=== PATIENT | female | born 2000 | race Hispanic/Latino ===

== ENCOUNTER 2021-07-21 13:54 | Observation (INO) | payer OTHER ==
[2021-07-21] MEDS ORDERED: hydrALAZINE 20 MG/ML VIAL SLOW IVP PRN (14:20)
[2021-07-21] MEDS ORDERED: Promethazine HCl 25 MG/ML VIAL IM PRN (14:20)
[2021-07-21] MEDS ORDERED: Ondansetron PF 4 MG/2 ML Vial IVP PRN (14:20)
[2021-07-21] MEDS ORDERED: Calcium Gluc 4.6 MEQ/10 ML (100 MG/ML) SLOW IVP PRN (14:20)
[2021-07-21] MEDS ORDERED: hydrALAZINE 20 MG/ML VIAL ONE (14:21)
[2021-07-21] MEDS ORDERED: Magnesium Sulfate 20 gm/500 ml 20 GM/500 ML BAG IVPB SCH (14:45)
[2021-07-21] MEDS: Betamet Acet/Betamet Na Ph 30 MG/5 ML VIAL IM SCH (15:20)
[2021-07-21] MEDS ORDERED: Acetaminophen 500 MG TAB PO PRN (15:58)
[2021-07-21] MEDS ORDERED: Acetaminophen 500 MG TAB PO SCH (16:30)
[2021-07-21 16:56] LABS: Syphilis Antibody Nonreactive (Nonreactive); Syphilis Antibody Index 0.04 S/CO (<1.00 Non-Reactive)
[2021-07-21 17:12] LABS: Hep B Surf Ag Non-Reactive S/CO (NonReactive)
[2021-07-21 17:14] LABS: HBSAg Index 0.22 S/CO (0-0.99)
[2021-07-21 20:44] VITALS: BMI 22.8
[2021-07-22 05:16] LABS: #Monocytes 0.5 10x3/uL (0.0-1.1); #Neutrophils 10.5 10x3/uL (1.5-8.4); %Basophils 0.2 % (0.0-2.0); %Lymphocytes 8.6 % (18.0-47.0); %Monocytes 3.8 % (0.0-10.0); %Neutrophils 85.8 % (40.0-75.0); Hemoglobin 11.8 g/dL (12.0-15.5); Mean Corpuscular HGB CONC 34.7 g/dL (32.0-36.0); Mean Corpuscular Hemoglobin 28.6 pg (27.0-33.0); Mean Corpuscular Volume 82.3 fl (81.6-98.3); Platelet Count 286 10x3/uL (150-450); Red Blood Cell (RBC) Count 4.13 10x6/uL (3.90-5.03); White Blood Cell (WBC) Count 12.2 10x3/uL (3.5-10.5)
[2021-07-22 06:06] LABS: ALT (SGPT) 20 U/L (8-55); AST (SGOT) 20 U/L (5-30); Albumin 3.2 g/dL (3.5-5.0); Alkaline Phosphatase 126 U/L (40-100); Anion Gap 14 mmol/L (10-20); BUN (Urea Nitrogen) 8 mg/dL (8.4-21.0); Bilirubin, Total 0.2 mg/dL (0.2-1.2); Calc. Creatinine Clearance 133 mL/min (70-130); Calcium 8.6 mg/dL (7.8-10.44); Carbon Dioxide 16 mmol/L (22-29); Chloride 108 mmol/L (98-107); Globulin 3.1 g/dL (2.4-3.5); Glucose 115 mg/dL (70-105); Potassium 4.1 mmol/L (3.5-5.1); Protein, Total 6.3 g/dL (6.0-8.3); Sodium 134 mmol/L (136-145)
[2021-07-22] MEDS ORDERED: Prenatal Vitamin 1 TAB PO SCH (09:00)
[2021-07-22] MEDS: Betamet Acet/Betamet Na Ph 30 MG/5 ML VIAL IM SCH (15:22)
[2021-07-22 16:31] VITALS: BP 126/74; TEMP 98
[2021-07-22 16:35] LABS: Protein, Urine Less than 10 mg/dL (1-14)
[2021-07-22 16:46] LABS: Urine Total Volume 1990 mL (600-1600)
== END 2021-07-22 18:55 | disposition home or self-care (01) ==
LOC: CSHLD 13:54 → INTOOBSV 13:54 → CSHLD 14:19 → CSHANTE 22:01
PROVIDERS: ADMIT Student in an Organized Health Care Education/Training Program; ATTEND Student in an Organized Health Care Education/Training Program
DX: O13.2 Gestational [pregnancy-induced] hypertension without significant proteinuria, second trimester (principal); O36.5920 Maternal care for other known or suspected poor fetal growth, second trimester, not applicable or unspecified; O99.512 Diseases of the respiratory system complicating pregnancy, second trimester; J11.1 Influenza due to unidentified influenza virus with other respiratory manifestations; Z3A.27 27 weeks gestation of pregnancy; Z79.82 Long term (current) use of aspirin
CPT/HCPCS: 36415; 76816; 80053; 84156; 85025; 86780; 86850; 86900; 86901; 87340; 96372; 99285; G0378; J0702

== ENCOUNTER 2021-08-03 10:06 | Day surgery (SDC) | payer OTHER ==
[2021-08-03 10:56] VITALS: BMI 24.1
[2021-08-03] MEDS ORDERED: hydrALAZINE 20 MG/ML VIAL SLOW IVP PRN (11:27)
[2021-08-03 12:03] LABS: Anion Gap 13 mmol/L (10-20); BUN (Urea Nitrogen) 7 mg/dL (8.4-21.0); Calc. Creatinine Clearance 141 mL/min (70-130); Calcium 8.5 mg/dL (7.8-10.44); Carbon Dioxide 20 mmol/L (22-29); Chloride 107 mmol/L (98-107); Glucose 76 mg/dL (70-105); Potassium 3.7 mmol/L (3.5-5.1); Sodium 136 mmol/L (136-145)
== END 2021-08-03 14:00 | disposition home or self-care (01) ==
LOC: CSHLD/OP 10:06
PROVIDERS: ATTEND Student in an Organized Health Care Education/Training Program
DX: O99.891 Other specified diseases and conditions complicating pregnancy (principal); R19.7 Diarrhea, unspecified; O47.03 False labor before 37 completed weeks of gestation, third trimester; O99.283 Endocrine, nutritional and metabolic diseases complicating pregnancy, third trimester; E86.0 Dehydration; O13.3 Gestational [pregnancy-induced] hypertension without significant proteinuria, third trimester; Z3A.28 28 weeks gestation of pregnancy; Z79.82 Long term (current) use of aspirin
CPT/HCPCS: 36415; 80048; 99282

== ENCOUNTER 2021-08-17 18:53 | Inpatient (IN) | payer OTHER ==
[2021-08-17 19:23] VITALS: BMI 26.0
[2021-08-17] MEDS ORDERED: Acetaminophen 500 MG TAB PO SCH ×2 (20:00→21:45)
[2021-08-17 20:29] LABS: #Basophils 0.1 10x3/uL (0.0-0.2); #Eosinphils 0.4 10x3/uL (0.0-0.5); #Monocytes 0.9 10x3/uL (0.0-1.1); #Neutrophils 10.4 10x3/uL (1.5-8.4); %Basophils 0.5 % (0.0-2.0); %Eosinophils 2.4 % (0.0-6.0); %Lymphocytes 19.1 % (18.0-47.0); %Neutrophils 70.2 % (40.0-75.0); Mean Corpuscular HGB CONC 34.4 g/dL (32.0-36.0); Mean Corpuscular Hemoglobin 28.8 pg (27.0-33.0); Mean Corpuscular Volume 83.8 fl (81.6-98.3); Mean Platelet Volume 11.8 fl (7.4-10.4); Platelet Count 276 10x3/uL (150-450); RBC Distribution Width 12.3 % (11.5-14.5); Red Blood Cell (RBC) Count 3.82 10x6/uL (3.90-5.03); White Blood Cell (WBC) Count 14.9 10x3/uL (3.5-10.5)
[2021-08-17 20:35] LABS: Creatinine, Urine 186.13 mg/dL (47-110)
[2021-08-17 20:48] LABS: ALT (SGPT) 21 U/L (8-55); AST (SGOT) 24 U/L (5-34); Albumin 2.8 g/dL (3.5-5.0); Alkaline Phosphatase 169 U/L (40-100); Anion Gap 12 mmol/L (10-20); BUN (Urea Nitrogen) 15 mg/dL (7.0-18.7); Bilirubin, Total 0.1 mg/dL (0.2-1.2); Calc. Creatinine Clearance 123 mL/min (70-130); Calcium 8.5 mg/dL (7.8-10.44); Carbon Dioxide 21 mmol/L (22-29); Chloride 108 mmol/L (98-107); Globulin 3.2 g/dL (2.4-3.5); Glucose 79 mg/dL (70-105); Potassium 3.8 mmol/L (3.5-5.1); Sodium 137 mmol/L (136-145)
[2021-08-17] MEDS ORDERED: Labetalol HCl 100 MG TAB PO SCH (21:00)
[2021-08-17] MEDS ORDERED: hydrALAZINE 20 MG/ML VIAL SLOW IVP PRN (21:37)
[2021-08-17] MEDS ORDERED: Lidocaine 1% (PF) 30 ML VIAL SC PRN (21:37)
[2021-08-17] MEDS ORDERED: Ondansetron PF 4 MG/2 ML Vial IVP PRN (21:37)
[2021-08-17] MEDS ORDERED: Lactated Ringer's 500 ML IV SCH (21:45)
[2021-08-18 06:54] LABS: #Basophils 0.1 10x3/uL (0.0-0.2); #Eosinphils 0.5 10x3/uL (0.0-0.5); #Monocytes 0.8 10x3/uL (0.0-1.1); #Neutrophils 8.5 10x3/uL (1.5-8.4); %Basophils 0.5 % (0.0-2.0); %Eosinophils 3.5 % (0.0-6.0); %Lymphocytes 22.1 % (18.0-47.0); %Monocytes 6.2 % (0.0-10.0); %Neutrophils 66.1 % (40.0-75.0); Mean Corpuscular HGB CONC 34.9 g/dL (32.0-36.0); Mean Corpuscular Hemoglobin 29.2 pg (27.0-33.0); Mean Corpuscular Volume 83.6 fl (81.6-98.3); Mean Platelet Volume 11.7 fl (7.4-10.4); Platelet Count 258 10x3/uL (150-450); RBC Distribution Width 12.8 % (11.5-14.5); Red Blood Cell (RBC) Count 3.77 10x6/uL (3.90-5.03); White Blood Cell (WBC) Count 12.8 10x3/uL (3.5-10.5)
[2021-08-18 07:10] LABS: ALT (SGPT) 18 U/L (8-55); AST (SGOT) 21 U/L (5-34); Albumin 2.5 g/dL (3.5-5.0); Alkaline Phosphatase 146 U/L (40-100); Anion Gap 13 mmol/L (10-20); BUN (Urea Nitrogen) 13 mg/dL (7.0-18.7); Bilirubin, Total 0.1 mg/dL (0.2-1.2); Calc. Creatinine Clearance 141 mL/min (70-130); Calcium 7.9 mg/dL (7.8-10.44); Carbon Dioxide 19 mmol/L (22-29); Chloride 109 mmol/L (98-107); Globulin 2.9 g/dL (2.4-3.5); Glucose 79 mg/dL (70-105); Potassium 3.7 mmol/L (3.5-5.1); Protein, Total 5.4 g/dL (6.0-8.3); Sodium 137 mmol/L (136-145)
[2021-08-18 09:45] LABS: INR-International Normal Ratio 0.8; PTT 25.7 sec (22.0-33.0); Prothrombin Time 9.3 sec (9.5-12.1)
[2021-08-18] MEDS ORDERED: Acetaminophen 500 MG TAB PO PRN (11:15)
[2021-08-18] MEDS ORDERED: diphenhydrAMINE 25 MG CAP PO PRN (11:15)
[2021-08-18] MEDS ORDERED: Acetaminophen 500 MG TAB PO SCH (12:00)
[2021-08-18] MEDS ORDERED: diphenhydrAMINE 25 MG CAP PO SCH (12:00)
[2021-08-18 15:28] LABS: SARS-CoV-2 PCR by NAA Not Detected (NotDetected)
[2021-08-18] MEDS ORDERED: Cyclobenzaprine 10 MG TAB PO SCH (16:30)
[2021-08-18] MEDS: Betamet Acet/Betamet Na Ph 30 MG/5 ML VIAL IM SCH (16:36)
[2021-08-19 09:57] LABS: Protein, Urine 111 mg/dL (1-14)
[2021-08-19 10:13] LABS: Protein - 24 Hr 2803 mg/24 hr (Less than 300); Urine Total Volume 2525 mL (600-1600)
[2021-08-19] MEDS: Betamet Acet/Betamet Na Ph 30 MG/5 ML VIAL IM SCH (16:43)
[2021-08-20 05:19] LABS: INR-International Normal Ratio 0.8; PTT 22.8 sec (22.0-33.0); Prothrombin Time 9.3 sec (9.5-12.1)
[2021-08-20 05:23] LABS: ALT (SGPT) 21 U/L (8-55); AST (SGOT) 23 U/L (5-34); Albumin 2.6 g/dL (3.5-5.0); Alkaline Phosphatase 167 U/L (40-100); Anion Gap 13 mmol/L (10-20); BUN (Urea Nitrogen) 16 mg/dL (7.0-18.7); Bilirubin, Total 0.1 mg/dL (0.2-1.2); Calc. Creatinine Clearance 130 mL/min (70-130); Calcium 7.8 mg/dL (7.8-10.44); Carbon Dioxide 18 mmol/L (22-29); Chloride 109 mmol/L (98-107); Glucose 132 mg/dL (70-105); Protein, Total 5.6 g/dL (6.0-8.3); Sodium 136 mmol/L (136-145); Uric Acid 4.9 mg/dL (2.6-6.0)
[2021-08-20 05:49] LABS: Hemoglobin 10.6 g/dL (12.0-15.5); Mean Corpuscular HGB CONC 33.9 g/dL (32.0-36.0); Mean Corpuscular Hemoglobin 28.6 pg (27.0-33.0); Mean Corpuscular Volume 84.6 fl (81.6-98.3); Mean Platelet Volume 11.7 fl (7.4-10.4); Platelet Count 285 10x3/uL (150-450); RBC Distribution Width 12.5 % (11.5-14.5)
[2021-08-20 06:42] LABS: MDiff Complete? YES
[2021-08-20 06:43] LABS: Platelet Morphology Comment Appears Adequate; RBC Morphology Normal
[2021-08-20 06:45] LABS: Band 4 % (5-11); Lymphocytes 11 % (28-48); Monocytes 5 % (0-4); Neutrophil 80 % (31-61)
[2021-08-20 09:25] LABS: Creatinine, Urine 85.89 mg/dL (47-110)
[2021-08-20] MEDS ORDERED: hydrALAZINE 20 MG/ML VIAL SLOW IVP PRN (22:07)
[2021-08-20] MEDS ORDERED: hydrALAZINE 20 MG/ML VIAL ONE (22:15)
[2021-08-21 02:23] LABS: Fetal Membranes Rupture No Membranes Rupture (No Rupture)
[2021-08-21 04:04] LABS: HIV (1/2) Antibody/Antigen Non-Reactive (NonReactive); HIV 1/2 INDEX 0.08 S/CO (<1.00); Hep B Surf Ag Non-Reactive S/CO (NonReactive); Syphilis Antibody Nonreactive (Nonreactive); Syphilis Antibody Index 0.02 S/CO (<1.00 Non-Reactive)
[2021-08-21 04:18] LABS: HBSAg Index 0.21 S/CO (0-0.99)
[2021-08-21] MEDS ORDERED: ceFAZolin 2 GM/Dextrose 50 ML IVPB ONE (07:05)
[2021-08-21 07:19] LABS: Hemoglobin 11.7 g/dL (12.0-15.5); Mean Corpuscular HGB CONC 34.3 g/dL (32.0-36.0); Mean Corpuscular Hemoglobin 28.7 pg (27.0-33.0); Mean Corpuscular Volume 83.6 fl (81.6-98.3); Mean Platelet Volume 11.3 fl (7.4-10.4); Platelet Count 284 10x3/uL (150-450); RBC Distribution Width 12.9 % (11.5-14.5); Red Blood Cell (RBC) Count 4.08 10x6/uL (3.90-5.03)
[2021-08-21] MEDS ORDERED: Famotidine/PF 20 mg/2ml Vial SLOW IVP PRN (07:30)
[2021-08-21] MEDS ORDERED: Bicitra 30 ML UDCUP PO PRN (07:30)
[2021-08-21] MEDS ORDERED: ceFAZolin 2 GM/Dextrose 50 ML 2 GM in Premix Bag 1 BAG IVPB SCH (07:30)
[2021-08-21] MEDS ORDERED: Lactated Ringer's 1,000 ML IV SCH (07:30)
[2021-08-21 07:47] LABS: MDiff Complete? YES
[2021-08-21 07:51] LABS: Band 7 % (5-11); Lymphocytes 14 % (28-48)
[2021-08-21 07:52] LABS: Monocytes 5 % (0-4); Neutrophil 74 % (31-61)
[2021-08-21 07:53] LABS: Platelet Morphology Comment Appears Adequate; RBC Morphology Normal
[2021-08-21] MEDS ORDERED: Fentanyl 100 MCG/2 ML VIAL ONE ×2 (08:10→11:38)
[2021-08-21] MEDS ORDERED: Morphine PF 10 MG/10 ML VIAL ONE (08:10)
[2021-08-21] MEDS ORDERED: Dexamethasone 4 mg/ml Vial ONE (08:11)
[2021-08-21] MEDS ORDERED: Ondansetron PF 4 MG/2 ML Vial ONE (08:11)
[2021-08-21] MEDS ORDERED: Oxytocin 10 UNITS/ML VIAL ONE ×2 (08:11→09:10)
[2021-08-21] MEDS ORDERED: Phenylephrine 40 MG/NS 250 ML 250 ML ONE (08:13)
[2021-08-21] MEDS ORDERED: Bupivacaine 0.25% HCL 30 ML VIAL ONE (08:55)
[2021-08-21] MEDS ORDERED: Ketamine 50 MG/ML (10ML VIAL) ONE (08:56)
[2021-08-21] MEDS ORDERED: Ketorolac Tromethamine 30 MG/ML VIAL ONE (09:18)
[2021-08-21 09:37] LABS: RapidComm Collect By NURSE; pH (Cord, venous) 7.323 (7.250-7.350)
[2021-08-21] MEDS ORDERED: Boostrix 0.5 ML (Tdap) VIAL IM ONE (09:55)
[2021-08-21] MEDS ORDERED: Lanolin Ointment 7 GM TUBE TOP PRN (09:55)
[2021-08-21] MEDS ORDERED: Misoprostol 200 MCG TAB PR PRN (09:55)
[2021-08-21] MEDS ORDERED: Acetaminophen 325 MG TAB PO PRN (09:55)
[2021-08-21] MEDS ORDERED: Bisacodyl 10 MG SUPP PR PRN (09:55)
[2021-08-21] MEDS ORDERED: NS w/ Oxytocin 30 units 500 ML IV SCH (10:00)
[2021-08-21] MEDS ORDERED: Fentanyl 100 MCG/2 ML VIAL SLOW IVP PRN (10:01)
[2021-08-21] MEDS ORDERED: Hydrocerin (Eucerin) Cream 120 gm Jar TOP PRN (10:01)
[2021-08-21] MEDS ORDERED: diphenhydrAMINE 50 MG/ML VIAL IVP PRN (10:01)
[2021-08-21] MEDS ORDERED: Ondansetron PF 4 MG/2 ML Vial IVP PRN (10:01)
[2021-08-21] MEDS ORDERED: Promethazine HCl 25 MG/ML VIAL IM PRN (10:01)
[2021-08-21] MEDS ORDERED: Ondansetron HCl/PF 4 MG/2 ML Vial IVP PRN (10:01)
[2021-08-21] MEDS ORDERED: Meperidine HCl/PF 25 MG/ML VIAL SLOW IVP PRN (10:01)
[2021-08-21] MEDS ORDERED: Ketorolac Tromethamine 30 MG/ML VIAL IVP PRN (10:01)
[2021-08-21] MEDS ORDERED: Promethazine HCl 25 MG SUPP PR PRN (10:01)
[2021-08-21] MEDS ORDERED: Naloxone HCl 0.4 mg/ml Vial IV PRN (10:01)
[2021-08-21] MEDS ORDERED: Naloxone HCl 0.4 mg/ml Vial IVP PRN ×2 (10:01)
[2021-08-21] MEDS ORDERED: Communication Order-Pharmacy FS SCH (10:15)
[2021-08-21] MEDS ORDERED: Ketorolac Tromethamine 30 MG/ML VIAL IVP SCH (10:15)
[2021-08-21] MEDS ORDERED: Meperidine HCl/PF 25 MG/ML VIAL ONE (11:36)
[2021-08-21] MEDS ORDERED: HYDROcodone/Acetaminophen 5/325 mg Tablet PO PRN (22:30)
[2021-08-22 05:21] LABS: Hemoglobin 7.2 g/dL (12.0-15.5); Mean Corpuscular HGB CONC 33.2 g/dL (32.0-36.0); Mean Corpuscular Hemoglobin 28.8 pg (27.0-33.0); Mean Corpuscular Volume 86.8 fl (81.6-98.3); Mean Platelet Volume 11.7 fl (7.4-10.4); Platelet Count 223 10x3/uL (150-450); RBC Distribution Width 12.9 % (11.5-14.5); White Blood Cell (WBC) Count 19.1 10x3/uL (3.5-10.5)
[2021-08-22 05:25] LABS: #Monocytes 1.7 10x3/uL (0.0-1.1); #Neutrophils 12.9 10x3/uL (1.5-8.4); %Basophils 0.2 % (0.0-2.0); %Lymphocytes 16.3 % (18.0-47.0); %Monocytes 9.4 % (0.0-10.0); %Neutrophils 69.7 % (40.0-75.0); Hemoglobin 6.7 g/dL (12.0-15.5); Mean Corpuscular HGB CONC 33.3 g/dL (32.0-36.0); Mean Corpuscular Hemoglobin 28.6 pg (27.0-33.0); Mean Corpuscular Volume 85.9 fl (81.6-98.3); Mean Platelet Volume 11.6 fl (7.4-10.4); Platelet Count 207 10x3/uL (150-450); RBC Distribution Width 12.9 % (11.5-14.5); Red Blood Cell (RBC) Count 2.34 10x6/uL (3.90-5.03); White Blood Cell (WBC) Count 18.5 10x3/uL (3.5-10.5)
[2021-08-22 05:32] LABS: INR-International Normal Ratio 0.8; PTT 22.9 sec (22.0-33.0); Prothrombin Time 9.3 sec (9.5-12.1)
[2021-08-22 06:00] LABS: ALT (SGPT) 16 U/L (8-55); AST (SGOT) 25 U/L (5-34); Albumin 2.1 g/dL (3.5-5.0); Alkaline Phosphatase 118 U/L (40-100); Anion Gap 12 mmol/L (10-20); BUN (Urea Nitrogen) 14 mg/dL (7.0-18.7); Bilirubin, Total 0.2 mg/dL (0.2-1.2); Calc. Creatinine Clearance 132 mL/min (70-130); Calcium 7.2 mg/dL (7.8-10.44); Carbon Dioxide 21 mmol/L (22-29); Chloride 106 mmol/L (98-107); Globulin 2.1 g/dL (2.4-3.5); Glucose 77 mg/dL (70-105); Potassium 4.4 mmol/L (3.5-5.1); Protein, Total 4.2 g/dL (6.0-8.3); Sodium 135 mmol/L (136-145); Uric Acid 4.9 mg/dL (2.6-6.0)
[2021-08-22] MEDS: Docusate 100 MG CAP PO SCH ×3 (07:04→21:58)
[2021-08-22] MEDS: Ferrous Sulfate 325 MG TAB PO SCH ×3 (07:04→22:06)
[2021-08-22] MEDS: Prenatal Vitamin 1 TAB PO SCH (08:48)
[2021-08-22] MEDS: Simethicone Chewable 80 MG TAB PO PRN ×2 (11:35→20:04)
[2021-08-22] MEDS: Ibuprofen 800 MG TAB PO SCH ×2 (13:54→21:58)
[2021-08-23 05:04] LABS: Hemoglobin 6.4 g/dL (12.0-15.5); Platelet Count 184 10x3/uL (150-450)
[2021-08-23] MEDS: Ibuprofen 800 MG TAB PO SCH ×3 (05:32→21:05)
[2021-08-23] MEDS: Simethicone Chewable 80 MG TAB PO PRN ×2 (05:32→13:45)
[2021-08-23] MEDS ORDERED: Acetaminophen 500 MG TAB PO SCH (08:00)
[2021-08-23] MEDS: Docusate 100 MG CAP PO SCH ×2 (08:46→21:05)
[2021-08-23] MEDS: Ferrous Sulfate 325 MG TAB PO SCH ×2 (08:47→21:06)
[2021-08-23] MEDS: Prenatal Vitamin 1 TAB PO SCH (08:47)
[2021-08-23] MEDS ORDERED: Iron, Sodium Ferric Gluconate 250 MG in Sodium Chloride 0.9% 250 ML 250 ML IVPB SCH (09:15)
[2021-08-24 04:22] LABS: Hemoglobin 6.4 g/dL (12.0-15.5); Mean Corpuscular HGB CONC 32.2 g/dL (32.0-36.0); Mean Corpuscular Hemoglobin 29.2 pg (27.0-33.0); Mean Corpuscular Volume 90.9 fl (81.6-98.3); Mean Platelet Volume 11.1 fl (7.4-10.4); Platelet Count 204 10x3/uL (150-450); RBC Distribution Width 13.5 % (11.5-14.5); Red Blood Cell (RBC) Count 2.19 10x6/uL (3.90-5.03)
[2021-08-24] MEDS: Ibuprofen 800 MG TAB PO SCH (05:46)
[2021-08-24 06:32] VITALS: TEMP 98.6
[2021-08-24] MEDS: Prenatal Vitamin 1 TAB PO SCH (08:12)
[2021-08-24] MEDS: Ferrous Sulfate 325 MG TAB PO SCH (08:12)
[2021-08-24] MEDS: Docusate 100 MG CAP PO SCH (08:12)
[2021-08-24 11:55] VITALS: BP 148/88
== END 2021-08-24 13:11 | disposition home or self-care (01) | DRG 787 ==
LOC: CSHLD/OP 18:53 → CSHLD 21:37 → OBSVTOIN 08-18 09:09 → CSHANTE 08-19 21:40 → CSHLD 08-21 00:56 → CSHPP 08-21 11:55
PROVIDERS: ADMIT Student in an Organized Health Care Education/Training Program; ATTEND Student in an Organized Health Care Education/Training Program
PROC: 10D00Z1 Extraction of Products of Conception, Low, Open Approach (ICD-10-PCS; principal; 2021-08-21)
DX: O11.4 Pre-existing hypertension with pre-eclampsia, complicating childbirth (principal); O41.03X0 Oligohydramnios, third trimester, not applicable or unspecified; O32.1XX0 Maternal care for breech presentation, not applicable or unspecified; O76 Abnormality in fetal heart rate and rhythm complicating labor and delivery; O60.14X0 Preterm labor third trimester with preterm delivery third trimester, not applicable or unspecified; Z20.822 Contact with and (suspected) exposure to COVID-19; Z79.82 Long term (current) use of aspirin; Z79.899 Other long term (current) drug therapy; Z37.0 Single live birth; Z3A.31 31 weeks gestation of pregnancy
CPT/HCPCS: 36415; 51702; 76816; 76819; 80053; 82570; 82805; 84112; 84156; 84550; 85014; 85018; 85025; 85027; 85049; 85610; 85730; 86780; 86850; 86870; 86900; 86901; 86922; 87081; 87340; 87389; 88307; 99285; G0378; J0360; J0690; J0702; J1100; J1885; J2175; J2274; J2405; J2590; J2916; J3010; J7050; J7120; S0020; U0003; U0005

== ENCOUNTER 2022-10-17 11:02 | Emergency (ER) | payer OTHER ==
[2022-10-17] MEDS ORDERED: Ondansetron PF 4 MG/2 ML Vial ONE (11:53)
[2022-10-17 12:16] LABS: ALT (SGPT) 16 U/L (8-55); AST (SGOT) 20 U/L (5-34); Albumin 3.8 g/dL (3.5-5.0); Alkaline Phosphatase 101 U/L (40-110); Anion Gap 16 mmol/L (10-20); BUN (Urea Nitrogen) 9 mg/dL (7.0-18.7); Bilirubin, Total 0.2 mg/dL (0.2-1.2); Calc. Creatinine Clearance 0 mL/min (70-130); Calcium 8.8 mg/dL (7.8-10.44); Carbon Dioxide 18 mmol/L (22-29); Chloride 105 mmol/L (98-107); Estimated GFR 134; Globulin 3.4 g/dL (2.4-3.5); Glucose 84 mg/dL (70-105); Hemoglobin 12.5 g/dL (12.0-15.5); Mean Corpuscular HGB CONC 33.4 g/dL (32.0-36.0); Mean Corpuscular Hemoglobin 27.1 pg (27.0-33.0); Platelet Count 364 10x3/uL (150-450); Potassium 3.8 mmol/L (3.5-5.1); Protein, Total 7.2 g/dL (6.0-8.3); RBC Distribution Width 13.6 % (11.5-14.5); Red Blood Cell (RBC) Count 4.62 10x6/uL (3.90-5.03); Sodium 135 mmol/L (136-145); White Blood Cell (WBC) Count 20.3 10x3/uL (3.5-10.5)
[2022-10-17 12:26] LABS: MDiff Complete? YES; Manual Diff?? YES
[2022-10-17 12:31] LABS: Band 3 % (5-11); Eosinophils 5 % (0-10); Lymphocytes 3 % (21-51); Metamyelocyte 1 % (0-0); Monocytes 5 % (0-10); Myelocyte 1 % (0-0); Neutrophil 82 % (42-75)
[2022-10-17 12:32] LABS: Hypochromia SLIGHT = 6-15 cells (100X) (0-5/hpf)
[2022-10-17 12:33] LABS: Platelet Morphology Comment Appears Adequate
[2022-10-17 13:35] LABS: Bilirubin Neg (Negative); Blood, Urine Negative (Negative); Clarity Slightly Cloudy (Clear); Glucose, Urine (Dipstick) Normal (Negative); Ketone, Urine 50 mg/dL (Negative); Leukocyte Negative (Negative); Nitrite Negative (Negative); Protein, Urine (Dipstick) Negative (Neg-Trace); Specific Gravity, Urine 1.025 (1.005-1.030); Urobilinogen Normal mg/dL (Less than 2)
== END 2022-10-17 14:09 | disposition home or self-care (01) ==
LOC: CSHERS 11:02
DX: O21.2 Late vomiting of pregnancy (principal); O10.012 Pre-existing essential hypertension complicating pregnancy, second trimester; Z3A.21 21 weeks gestation of pregnancy
CPT/HCPCS: 80053; 81003; 85025; 96361; 96374; J2405

== ENCOUNTER 2023-02-15 18:00 | Inpatient (IN) | payer OTHER ==
[2023-02-18 14:07] LABS: Hematocrit 38.3 % (34.9-44.5); Hemoglobin 12.3 g/dL (12.0-15.5); Platelet Count 324 10x3/uL (150-450)
[2023-02-18 14:43] LABS: HBSAg Index 0.19 S/CO (0-0.99); Hep B Surf Ag Non-Reactive S/CO (NonReactive)
[2023-02-18 14:44] LABS: Syphilis Antibody Nonreactive (Nonreactive); Syphilis Antibody Index 0.04 S/CO (<1.00 Non-Reactive)
[2023-02-19] MEDS: Lactated Ringer's 1,000 ML IV SCH ×2 (07:25→13:34)
[2023-02-19] MEDS ORDERED: Promethazine HCl 25 MG/ML VIAL IM PRN ×2 (07:37→12:46)
[2023-02-19] MEDS ORDERED: Lidocaine 1% (PF) 30 ML VIAL SC PRN (07:37)
[2023-02-19] MEDS ORDERED: Ibuprofen 800 MG TAB PO PRN (07:37)
[2023-02-19] MEDS ORDERED: Carboprost 250 MCG/ML AMP IM PRN (07:37)
[2023-02-19] MEDS ORDERED: Ondansetron PF 4 MG/2 ML Vial IVP PRN ×2 (07:37→12:46)
[2023-02-19] MEDS ORDERED: Tranexamic Acid 1,000 MG/10 ML VIAL IVP PRN (07:37)
[2023-02-19] MEDS ORDERED: Acetaminophen 500 MG TAB PO PRN (07:37)
[2023-02-19] MEDS ORDERED: hydrALAZINE 20 MG/ML VIAL SLOW IVP PRN (07:37)
[2023-02-19] MEDS ORDERED: Methylergonovine 0.2 MG/ML VIAL IM PRN (07:37)
[2023-02-19] MEDS ORDERED: Misoprostol 200 MCG TAB PR PRN (07:37)
[2023-02-19] MEDS ORDERED: NS w/ Oxytocin 30 units 500 ML IV SCH ×2 (07:45)
[2023-02-19 07:49] VITALS: BMI 30.2
[2023-02-19] MEDS ORDERED: fentaNYL/Ropivacaine Epidural 100 ML ONE (09:28)
[2023-02-19 09:47] LABS: Hematocrit 38.6 % (34.9-44.5); Hemoglobin 12.3 g/dL (12.0-15.5); Red Blood Cell (RBC) Count 5.16 10x6/uL (3.90-5.03); White Blood Cell (WBC) Count 12.6 10x3/uL (3.5-10.5)
[2023-02-19 09:48] LABS: %Basophils 0.6 % (0.0-2.0); %Eosinophils 1.4 % (0.0-6.0); %Lymphocytes 14.3 % (18.0-47.0); %Monocytes 4.9 % (0.0-10.0); %Neutrophils 77.8 % (40.0-75.0); Mean Corpuscular HGB CONC 31.9 g/dL (32.0-36.0); Mean Corpuscular Hemoglobin 23.8 pg (27.0-33.0); Mean Corpuscular Volume 74.8 fl (81.6-98.3); Mean Platelet Volume 10.8 fl (7.4-10.4); Platelet Count 282 10x3/uL (130-400); RBC Distribution Width 19.8 % (11.5-14.5)
[2023-02-19 09:49] LABS: #Basophils 0.1 10x3/uL (0.0-0.2); #Eosinphils 0.2 10x3/uL (0.0-0.5); #Monocytes 0.6 10x3/uL (0.0-1.1); #Neutrophils 9.8 10x3/uL (1.5-8.4)
[2023-02-19 10:13] LABS: Microcytosis SLIGHT = 6-15 cells (100X) (0-5/hpf)
[2023-02-19 10:16] LABS: Large Platelets SLIGHT (None Seen); Platelet Adequacy Comment Appears Adequate
[2023-02-19 10:22] LABS: Carbon Dioxide 18 mmol/L (22-29); Chloride 106 mmol/L (98-107); Critical Call Chemistry NP[; Potassium 4.1 mmol/L (3.5-5.1); Sodium 137 mmol/L (136-145)
[2023-02-19 10:23] LABS: ALT (SGPT) 12 U/L (8-55); AST (SGOT) 17 U/L (5-34); Albumin 3.3 g/dL (3.5-5.0); Alkaline Phosphatase 189 U/L (40-110); Anion Gap 17 mmol/L (10-20); BUN (Urea Nitrogen) 7 mg/dL (7.0-18.7); Bilirubin, Total 0.2 mg/dL (0.2-1.2); Calc. Creatinine Clearance 170 mL/min (70-130); Calcium 8.9 mg/dL (7.6-10.4); Estimated GFR 131; Globulin 3.2 g/dL (2.4-3.5); Glucose 82 mg/dL (70-105); Protein, Total 6.5 g/dL (6.0-8.3)
[2023-02-19] MEDS ORDERED: ePHEDrine Sulfate 50 MG/10 ML VIAL SLOW IVP PRN (12:46)
[2023-02-19] MEDS ORDERED: Naloxone HCl 0.4 mg/ml Vial IVP PRN ×2 (12:46)
[2023-02-19] MEDS ORDERED: Moisturizing Cream (Eucerin) 113 GM JAR TOP PRN (12:46)
[2023-02-19] MEDS ORDERED: diphenhydrAMINE 50 MG/ML VIAL IVP PRN (12:46)
[2023-02-19] MEDS ORDERED: Lactated Ringer's 500 ML IV PRN (12:46)
[2023-02-19] MEDS ORDERED: Acetaminophen 325 MG TAB PO PRN (12:46)
[2023-02-19] MEDS ORDERED: Communication Order-Pharmacy FS SCH (13:00)
[2023-02-19] MEDS ORDERED: fentaNYL 2 mcg/Ropivacaine 0.2% Epidural 100 ML CADD EPIDURAL SCH (13:00)
[2023-02-19] MEDS ORDERED: Terbutaline Sulfate 1 MG/ML VIAL SC SCH (14:00)
[2023-02-19] MEDS ORDERED: Bupivacaine PF 0.5% 30 ML VIAL ONE (17:00)
[2023-02-19] MEDS ORDERED: Terbutaline Sulfate 1 MG/ML VIAL ONE (17:00)
[2023-02-19] MEDS ORDERED: Bupivacaine 0.25% HCL 30 ML VIAL ONE (17:00)
[2023-02-19] MEDS ORDERED: Lidocaine 2% MPF 10 ML AMP (For Epidural Use) ONE (17:00)
[2023-02-20] MEDS ORDERED: Famotidine/PF 20 mg/2ml Vial SLOW IVP PRN (02:17)
[2023-02-20] MEDS ORDERED: Bicitra 30 ML UDCUP PO PRN (02:17)
[2023-02-20] MEDS ORDERED: Azithromycin 500 MG VIAL ONE (02:21)
[2023-02-20] MEDS ORDERED: CEFAZOLIN 2 GM VIAL ONE (02:21)
[2023-02-20] MEDS ORDERED: Azithromycin 500 MG in Sodium Chloride 0.9% 250 ML 250 ML IVPB SCH (02:30)
[2023-02-20] MEDS ORDERED: CEFAZOLIN 2 GM in Sodium Chloride 0.9% 100 ML IVPB SCH (02:30)
[2023-02-20] MEDS ORDERED: Oxytocin 10 UNITS/ML VIAL ONE (02:31)
[2023-02-20] MEDS ORDERED: Ondansetron PF 4 MG/2 ML Vial ONE (02:31)
[2023-02-20] MEDS ORDERED: Morphine PF 10 MG/10 ML VIAL ONE (02:31)
[2023-02-20] MEDS ORDERED: Bupivacaine PF 0.5% 30 ML VIAL ONE (02:54)
[2023-02-20] MEDS ORDERED: KETAMINE 100 MG/ML (5ML VIAL) ONE (03:08)
[2023-02-20] MEDS ORDERED: Midazolam HCl 2 mg/2 ml Vial ONE (03:08)
[2023-02-20] MEDS ORDERED: fentaNYL 50 mcg/mL 1 mL Vial ONE ×2 (03:17→05:12)
[2023-02-20] MEDS ORDERED: PROPOFOL 0 ML ONE (03:17)
[2023-02-20] MEDS ORDERED: hydrALAZINE 20 MG/ML VIAL SLOW IVP PRN (03:36)
[2023-02-20] MEDS ORDERED: Lanolin Ointment 7 GM TUBE TOP PRN (03:36)
[2023-02-20] MEDS ORDERED: Boostrix 0.5 ML (Tdap) VIAL (>/=7 yrs of age) IM ONE (03:36)
[2023-02-20] MEDS ORDERED: Moisturizing Cream (Eucerin) 113 GM JAR TOP PRN (05:02)
[2023-02-20] MEDS ORDERED: Ondansetron HCl/PF 4 MG/2 ML Vial IVP PRN (05:02)
[2023-02-20] MEDS ORDERED: Naloxone HCl 0.4 mg/ml Vial IV PRN (05:02)
[2023-02-20] MEDS ORDERED: Promethazine HCl 25 MG SUPP PR PRN (05:02)
[2023-02-20] MEDS ORDERED: Fentanyl 100 MCG/2 ML VIAL SLOW IVP PRN (05:02)
[2023-02-20] MEDS ORDERED: Naloxone HCl 0.4 mg/ml Vial IVP PRN ×2 (05:02)
[2023-02-20] MEDS ORDERED: diphenhydrAMINE 50 MG/ML VIAL IVP PRN (05:02)
[2023-02-20] MEDS ORDERED: Meperidine HCl/PF 25 MG/ML VIAL SLOW IVP PRN (05:02)
[2023-02-20] MEDS ORDERED: Promethazine HCl 25 MG/ML VIAL IM PRN (05:02)
[2023-02-20] MEDS ORDERED: Ondansetron PF 4 MG/2 ML Vial IVP PRN (05:02)
[2023-02-20] MEDS ORDERED: Communication Order-Pharmacy FS SCH (05:15)
[2023-02-20] MEDS ORDERED: Ketorolac Tromethamine 30 MG/ML VIAL IVP SCH (05:15)
[2023-02-20] MEDS ORDERED: Ibuprofen 800 MG TAB PO SCH (06:00)
[2023-02-20] MEDS ORDERED: Lactated Ringer's 1,000 ML IV SCH (09:30)
[2023-02-20 09:55] LABS: Hematocrit 31.6 % (34.9-44.5); Hemoglobin 10.1 g/dL (12.0-15.5)
[2023-02-20] MEDS: Ketorolac Tromethamine 30 MG/ML VIAL IVP PRN ×2 (10:47→17:04)
[2023-02-20] MEDS: Acetaminophen 325 MG TAB PO SCH ×4 (11:15→20:35)
[2023-02-20] MEDS: Prenatal Vitamin 1 TAB PO SCH (11:16)
[2023-02-20] MEDS: Lactated Ringer's 1,000 ML IV SCH (11:19)
[2023-02-20 15:16] LABS: Hematocrit 29.9 % (34.9-44.5); Hemoglobin 9.6 g/dL (12.0-15.5)
[2023-02-20] MEDS ORDERED: HYDROcodone/Acetaminophen 5/325 mg Tablet PO PRN (17:15)
[2023-02-21] MEDS: HYDROcodone/Acetaminophen 5/325 mg Tablet PO PRN ×2 (00:26→04:38)
[2023-02-21] MEDS: Acetaminophen 325 MG TAB PO SCH ×6 (00:26→21:27)
[2023-02-21 03:13] LABS: Hematocrit 27.7 % (34.9-44.5); Hemoglobin 8.9 g/dL (12.0-15.5); Mean Corpuscular HGB CONC 32.1 g/dL (32.0-36.0); Mean Corpuscular Hemoglobin 24.2 pg (27.0-33.0); Mean Corpuscular Volume 75.3 fl (81.6-98.3); Mean Platelet Volume 10.8 fl (7.4-10.4); Platelet Count 213 10x3/uL (150-450); RBC Distribution Width 20.4 % (11.5-14.5); Red Blood Cell (RBC) Count 3.68 10x6/uL (3.90-5.03); White Blood Cell (WBC) Count 14.6 10x3/uL (3.5-10.5)
[2023-02-21] MEDS: Prenatal Vitamin 1 TAB PO SCH (08:18)
[2023-02-21] MEDS: Ibuprofen 800 MG TAB PO SCH ×2 (14:01→21:27)
[2023-02-21 14:28] LABS: Hematocrit 31.7 % (34.9-44.5); Hemoglobin 9.9 g/dL (12.0-15.5); Mean Corpuscular HGB CONC 31.2 g/dL (32.0-36.0); Mean Corpuscular Hemoglobin 23.8 pg (27.0-33.0); Mean Corpuscular Volume 76.2 fl (81.6-98.3); Mean Platelet Volume 10.6 fl (7.4-10.4); Platelet Count 281 10x3/uL (150-450); RBC Distribution Width 20.3 % (11.5-14.5); Red Blood Cell (RBC) Count 4.16 10x6/uL (3.90-5.03); White Blood Cell (WBC) Count 16.6 10x3/uL (3.5-10.5)
[2023-02-22] MEDS: Acetaminophen 325 MG TAB PO SCH ×6 (01:03→19:29)
[2023-02-22] MEDS: Ibuprofen 800 MG TAB PO SCH ×3 (05:11→21:26)
[2023-02-22 08:16] LABS: Hematocrit 30.3 % (34.9-44.5); Hemoglobin 9.6 g/dL (12.0-15.5); Mean Corpuscular HGB CONC 31.7 g/dL (32.0-36.0); Mean Corpuscular Hemoglobin 23.9 pg (27.0-33.0); Mean Corpuscular Volume 75.6 fl (81.6-98.3); Mean Platelet Volume 10.9 fl (7.4-10.4); Platelet Count 294 10x3/uL (150-450); RBC Distribution Width 20.3 % (11.5-14.5); Red Blood Cell (RBC) Count 4.01 10x6/uL (3.90-5.03); White Blood Cell (WBC) Count 13.8 10x3/uL (3.5-10.5)
[2023-02-22] MEDS: Prenatal Vitamin 1 TAB PO SCH (08:49)
[2023-02-23] MEDS: Acetaminophen 325 MG TAB PO SCH ×3 (00:04→08:48)
[2023-02-23] MEDS: Ibuprofen 800 MG TAB PO SCH (05:58)
[2023-02-23] MEDS: Prenatal Vitamin 1 TAB PO SCH (08:48)
[2023-02-23 09:57] VITALS: BP 124/75; TEMP 98.6
== END 2023-02-23 13:00 | disposition home or self-care (01) | DRG 786 ==
LOC: CSHLD 02-19 06:29 → CSHPP 02-20 06:30
PROVIDERS: ADMIT Student in an Organized Health Care Education/Training Program; ATTEND Student in an Organized Health Care Education/Training Program
PROC: 3E033VJ Introduction of Other Hormone into Peripheral Vein, Percutaneous Approach (ICD-10-PCS; 2023-02-19)
PROC: 10907ZC Drainage of Amniotic Fluid, Therapeutic from Products of Conception, Via Natural or Artificial Opening (ICD-10-PCS; 2023-02-19)
PROC: 10H07YZ Insertion of Other Device into Products of Conception, Via Natural or Artificial Opening (ICD-10-PCS; 2023-02-19)
PROC: 10D00Z1 Extraction of Products of Conception, Low, Open Approach (ICD-10-PCS; principal; 2023-02-20)
PROC: 3E0234Z Introduction of Serum, Toxoid and Vaccine into Muscle, Percutaneous Approach (ICD-10-PCS; 2023-02-20)
DX: O34.211 Maternal care for low transverse scar from previous cesarean delivery (principal); O71.1 Rupture of uterus during labor; O62.1 Secondary uterine inertia; O77.0 Labor and delivery complicated by meconium in amniotic fluid; O32.1XX0 Maternal care for breech presentation, not applicable or unspecified; Z3A.39 39 weeks gestation of pregnancy; Z37.0 Single live birth; Z79.82 Long term (current) use of aspirin; O26.893 Other specified pregnancy related conditions, third trimester; Z67.41 Type O blood, Rh negative
CPT/HCPCS: 36415; 51702; 80053; 85014; 85018; 85025; 85027; 85049; 85461; 86780; 86850; 86900; 86901; 87340; 90384; 96372; J1885; J2250; J2274; J2405; J2590; J2704; J3010; J3105; J7120; S0020